=== PATIENT | female | born 1995 | race Caucasian/White ===

== ENCOUNTER 2019-12-07 05:48 | Inpatient (IN) | payer BC ==
[2019-12-07] MEDS ORDERED: Scopolamine 1.5 MG Transdermal Patch TOP ONE (06:30)
[2019-12-07] MEDS ORDERED: Dextrose 5%-Lactated Ringers 1,000 ML IV SCH (06:30)
[2019-12-07] MEDS ORDERED: Gabapentin 300 MG Cap PO ONE (06:30)
[2019-12-07] MEDS ORDERED: Celecoxib 200 MG Cap PO ONE (06:30)
[2019-12-07] MEDS ORDERED: Acetaminophen 500 MG Tab PO ONE (06:30)
[2019-12-07] MEDS ORDERED: cefOXitin 2 GM Vial ONE (06:59)
[2019-12-07] MEDS ORDERED: fentaNYL 250 MCG/5 ML SDV ONE (07:02)
[2019-12-07] MEDS ORDERED: Neostigmine Methylsulfate 1 MG/ML 5 ML Syringe ONE (07:03)
[2019-12-07] MEDS ORDERED: Ondansetron 4 MG/2 ML SDV ONE (07:03)
[2019-12-07] MEDS ORDERED: Glycopyrrolate 0.2 MG/ML 5 ML MDV ONE (07:03)
[2019-12-07] MEDS ORDERED: Succinylcholine 200 MG/10 ML MDV ONE (07:03)
[2019-12-07] MEDS ORDERED: Propofol 200 MG/20 ML SDV ONE (07:03)
[2019-12-07] MEDS ORDERED: Rocuronium 50 MG/5 ML Vial ONE (07:03)
[2019-12-07] MEDS ORDERED: Dexamethasone 4 MG/ML SDV ONE (07:03)
[2019-12-07] MEDS ORDERED: cefOXitin 2 GM in Sodium Chloride 0.9% 50 ML IV ONE (07:30)
[2019-12-07] MEDS ORDERED: Ketamine 50 MG in Sodium Chloride 0.9% 49.5 ML IV SCH (08:00)
[2019-12-07] MEDS ORDERED: Ketamine 500 MG/5 ML MDV IV SCH (08:00)
[2019-12-07] MEDS ORDERED: Magnesium Sulfate 7 GM in Sodium Chloride 0.9% 250 ML IV ONE (08:00)
[2019-12-07] MEDS ORDERED: fentaNYL 100 MCG/2 ML SDV ONE (08:12)
[2019-12-07] MEDS ORDERED: Lactated Ringers 1,000 ML ONE (09:17)
[2019-12-07] MEDS ORDERED: hydrOXYzine HCL 100 MG/2 ML SDV IM PRN (10:00)
[2019-12-07] MEDS ORDERED: Ondansetron 4 MG/2 ML SDV IVPUSH PRN (10:00)
[2019-12-07] MEDS ORDERED: Cyclobenzaprine 10 MG Tab PO PRN (10:00)
[2019-12-07] MEDS ORDERED: diphenhydrAMINE 50 MG/ML SDV IVPUSH PRN (10:00)
[2019-12-07] MEDS ORDERED: Acetaminophen 500 MG Tab PO PRN (10:00)
[2019-12-07] MEDS ORDERED: Labetalol 20 MG/4 ML Syringe IVPUSH PRN (10:00)
[2019-12-07] MEDS ORDERED: HYDROmorphone 1 MG/ML Syringe IV PRN (10:00)
[2019-12-07] MEDS ORDERED: Calcium Gluconate 10% 1 GM/10 ML SDV IVPUSH PRN (10:00)
[2019-12-07] MEDS ORDERED: Metoclopramide 10 MG/2 ML SDV IVPUSH PRN (10:00)
[2019-12-07] MEDS ORDERED: oxyCODONE 5 MG Tab PO PRN (10:00)
[2019-12-07] MEDS ORDERED: HYDROmorphone 0.5 MG/0.5 ML Syringe IVPUSH PRN (10:00)
[2019-12-07] MEDS ORDERED: Pantoprazole 40 MG Vial IVPUSH SCH (12:00)
[2019-12-07] MEDS: Dextrose 5%-Lactated Ringers 1,000 ML IV SCH ×3 (12:00→23:45)
[2019-12-07] MEDS: cefOXitin 2 GM in Sodium Chloride 0.9% 50 ML IV SCH ×3 (13:46→23:44)
[2019-12-07] MEDS: Gabapentin 250 MG/5 ML Solution ML 470 ML Bottle PO SCH ×2 (13:58→20:28)
[2019-12-07] MEDS: Acetaminophen 500 MG Tab PO SCH ×2 (13:58→21:50)
[2019-12-07] MEDS: Heparin Sodium 5,000 Units/ML Vial SUBCUT SCH (17:33)
[2019-12-07] MEDS: MVI, Adult with Vitamin K 10 ML, Thiamine 200 MG, Chromium/Copper/Mang/Selen/Zn 1 ML in... IV SCH ×4 (17:35)
[2019-12-08] MEDS ORDERED: Iopamidol 612 MG/ML 50 ML SDV PO STA (01:53)
[2019-12-08] MEDS: Acetaminophen 500 MG Tab PO SCH ×3 (05:22→22:03)
[2019-12-08] MEDS: Heparin Sodium 5,000 Units/ML Vial SUBCUT SCH ×2 (05:22→16:28)
[2019-12-08] MEDS: Dextrose 5%-Lactated Ringers 1,000 ML IV SCH (05:25)
[2019-12-08] MEDS: cefOXitin 2 GM in Sodium Chloride 0.9% 50 ML IV SCH ×2 (05:30→11:59)
[2019-12-08] MEDS ORDERED: Ondansetron 4 MG Tab.DIS PO PRN (06:46)
[2019-12-08] MEDS ORDERED: hydrOXYzine HCl 25 MG Tab PO PRN (06:47)
[2019-12-08] MEDS ORDERED: Dextrose 5%-Lactated Ringers 1,000 ML IV SCH (07:00)
[2019-12-08] MEDS: Gabapentin 250 MG/5 ML Solution ML 470 ML Bottle PO SCH ×3 (08:34→22:03)
[2019-12-08] MEDS: Celecoxib 200 MG Cap PO SCH ×2 (08:34→22:03)
[2019-12-08] MEDS ORDERED: SCOPOLAMINE PATCH CHECK TOP SCH (09:00)
--- NOTE | 2019-12-08 10:47 | CR ---
[facility] HISTORY: Postbariatric surgery FINDINGS: Patient swallowed water-soluble contrast. Upright views of the abdomen show no evidence of extravasation or obstruction. There is a surgical drain in the left upper quadrant. IMPRESSION: Status post bariatric surgery No extravasation or obstruction seen
[2019-12-08] MEDS ORDERED: Pantoprazole 40 MG Delayed-Release Granules 1 Packet PO SCH (11:30)
--- NOTE | 2019-12-08 11:41 | PN ---
DATE OF SERVICE: 12/08/2019 SUBJECTIVE: Mellisa is postop day #1. Upper GI this morning was normal. Vital signs have been stable. She has been up ambulating. Pain has been controlled with energy protocol. Oral intake 630. Urine output 3600 and SHABANA drain put out 110 mL of a light pink drainage. REVIEW OF SYSTEMS: Remainder of review of systems negative for any pertinent positives and negatives. OBJECTIVE: GENERAL: Mellisa Sanabria is a pleasant 24-year-old female. VITAL SIGNS: TPR at 0235; 97.7, 98, 18. Blood pressure 150/74. HEENT: Negative. NECK: Supple. HEART: Regular rate and rhythm. LUNGS: Clear. ABDOMEN: Dressings dry and intact. Abdominal binder is on and SHABANA drain intact as above. EXTREMITIES: Without peripheral edema. ASSESSMENT: Diagnostic laparoscopy with: 1. Laparoscopic sleeve gastrectomy. 2. Liver biopsy. 3. Repair of paraesophageal hernia. POSTOPERATIVE DIAGNOSES: 1. Morbid obesity. 2. Hepatomegaly. 3. Paraesophageal diaphragmatic hernia. Date of procedure: 12/07/2019. Surgeon: Bimal Vazquez MD. PLAN: 1. Communication order: 3 med cups per hour, 1 every 20 minutes, record at bedside. 2. May shower, dressing off. 3. Step 2 gastric bypass diet without cereal. 4. Decrease IV to 100 mL/h. 5. Atarax 25 mg p.o. q.4 hours p.r.n. pain. 6. Zofran ODT 4 mg every 4 hours p.r.n. nausea. Discontinue IV Dilaudid, discontinue IM Vistaril, and discontinue pulse oximetry. Continue use of incentive spirometer. 7. Ambulate at least 6 times in moraes, distance as tolerated. 8. We will evaluate p.r.n. or in a.m. Karen Claire PA-C /[id number]
[2019-12-08] MEDS: MVI, Adult with Vitamin K 10 ML, Thiamine 200 MG, Chromium/Copper/Mang/Selen/Zn 1 ML in... IV SCH ×4 (15:33)
--- NOTE | 2019-12-08 15:39 | OR ---
DATE OF PROCEDURE: 12/07/2019 SURGEON: Bimal Vazquez MD PREOPERATIVE DIAGNOSIS: Morbid obesity. POSTOPERATIVE DIAGNOSES: 1. Morbid obesity. 2. Marked hepatomegaly. 3. Paraesophageal diaphragmatic hernia. OPERATIVE PROCEDURE: Diagnostic laparoscopy with: 1. Laparoscopic sleeve gastrectomy (83735). 2. Neville-Cut needle liver biopsy (73941). 3. Repair of paraesophageal diaphragmatic hernia (10981). ANESTHESIA: General. FRONT OFFICE SECRETARY: Karen Claire PA-C INDICATIONS FOR PROCEDURE: A 24-year-old female presenting with longstanding morbid obesity and increasingly significant comorbidities. After preoperative evaluation and discussion, she wished to proceed with a sleeve gastrectomy. Potential risks including bleeding, infection, leaks from the staple line, problems with worsening reflux, as well as potential nutritional deficiencies, and lastly either short-term or long-term inadequate weight loss were all gone over, along with the remote possibility of cardiopulmonary, septic, or hemorrhagic complications leading to , and the patient wishes to proceed. DETAILS OF PROCEDURE: The patient was taken to the operative room and placed in a supine position. After general endotracheal anesthesia was induced, she was converted to a lithotomy position, and the abdomen prepped and draped. At 15 cm inferior and 5 cm left of the xiphoid process, transverse incision was made, and the peritoneal cavity entered under direct vision with an Optiview trocar, inflated to 15 mmHg pressure of CO2. Laparoscope was reinserted. No underlying trocar insertion site injuries were seen. Following this, 5 additional trocars were placed across the upper and mid abdomen. Bilateral transversus abdominis plane blocks were placed. The patient was noted to have marked hepatomegaly with liver being grossly fatty infiltrated, roughly 2 to 3 times than normal in size. Neville-Cut needle biopsies were obtained from left lobe of liver. Minimal bleeding from the biopsy sites was controlled with electrocautery. The liver was then retracted anteriorly. The patient was noted to have a moderate-sized paraesophageal diaphragmatic hernia. This included a prolapse of the perigastric fat and gastric fundus in a plane anterior to the course of the esophagus. Photo documentation was obtained. The hernia was then reduced and the peritoneum overlying incised and reflected downward. Once the crura were dissected out, crural repair anteriorly was accomplished with 0 Ethibond sutures reinforced with PTFE pledgets. Attention was then taken to division of the omentum away from the greater curvature of stomach. This began in the mid greater curvature. Initially, it was directed proximally across the short gastric vessels, including the highest and posterior short gastric vessels. The gastric fundus was then dissected away from the remaining attachments to the left yolanda of the diaphragm until that area was well freed up. The division of the omentum away from the greater curvature then continued to a point 2 cm proximal to the pylorus. The initial staple line across the antrum and then inferior to the incisura angularis was then marked out with electrocautery. The first 3 firings of the staple line were with non- reinforced TRICIA black loads. Care was taken to avoid overtightening of the incisura angularis. At that point, a 32-German suction tube was placed orally and then advanced across the esophagus and into the lesser curvature of the stomach. This was pulled up against the lesser curvature of the stomach where suction was applied. This acted then as a template for the remainder of the staple line, which was accomplished with a series of reinforced TRICIA black loads. At that point, the gastrectomy phase was completed, and the staple line was found to be intact. The remaining staple line was then reinforced with fibrin sealant, focusing on the area of the esophagogastric junction. The omentum was then brought up across the entire length of the staple line as well, where it easily adhered to the fibrin sealant. With the tube now off suction, the staple line was covered with some antibiotic-containing saline solution. While the duodenum was being compressed, air was injected; however with tense distention of the remaining stomach, no bleeding or air leaks were seen, and the gastric tube was then removed. At this point, the gastric specimen was retrieved through the left lateral trocar site. A Matt-Smomer drain was placed through the left lateral trocar site adjacent to the esophagogastric junction, and from there, into the splenic fossa. With no further problems noted, trocars were removed and peritoneal cavity deflated. The incision was closed with some 4-0 Vicryl skin stitch and the drain affixed with 4-0 Vicryl stitch as well. The patient was taken to the recovery room in satisfactory condition. Physician assistant drafter, Karen Claire PA-C, played an essential role in assisting in this case, helping to position the patient and retract structures as needed as well as suturing and cutting sutures when indicated. Her presence improved patient safety and decreased the operative time. Bimal Vazquez MD /[id number]
[2019-12-09] MEDS: Acetaminophen 500 MG Tab PO SCH (05:06)
[2019-12-09] MEDS: Heparin Sodium 5,000 Units/ML Vial SUBCUT SCH (05:06)
[2019-12-09] MEDS ORDERED: Cyanocobalamin (Vitamin B12) 1,000 MCG/ML SDV IM ONE (09:00)
[2019-12-09] MEDS: Gabapentin 250 MG/5 ML Solution ML 470 ML Bottle PO SCH (09:10)
[2019-12-09] MEDS: Celecoxib 200 MG Cap PO SCH (09:10)
--- NOTE | 2019-12-09 13:12 | DISCH ---
ADMISSION DIAGNOSES: 1. Morbid obesity. 2. BMI 52.9. DISCHARGE DIAGNOSES: Diagnostic laparoscopy with: 1. Laparoscopic sleeve gastrectomy. 2. Neville-Cut needle liver biopsy. 3. Repair of paraesophageal diaphragmatic hernia. POSTOPERATIVE DIAGNOSES: 1. Morbid obesity. 2. Marked hepatomegaly. 3. Paraesophageal diaphragmatic hernia. HISTORY: Mellisa is a 24-year-old female presenting with longstanding history of morbid obesity and increasing comorbidities. After preoperative evaluation and discussion of possible risks and possible complications, she wished to proceed with surgical procedure. HOSPITAL COURSE: Mellisa had her surgery on 12/07/2019. She had no postop complications. On postoperative day #1, her upper GI was normal. She was started on step 2 without cereal, gastric bypass diet. On postoperative day #2, she received dietary instruction, B12 1000 mcg IM injection, discharge instructions, and she was able to be discharged to home without any complications. PHYSICAL EXAMINATION: GENERAL: Mellisa is a pleasant 24-year-old female, alert, orientated. VITAL SIGNS: Height is 5 feet 6 inches, weight is 327 pounds 9.6 ounces, BMI is 52.9. TPR last checked on 12/08/2019 at 2220, 97.2; 82; 16; blood pressure 144/86. HEENT: Negative. NECK: Supple. HEART: Regular rate and rhythm. LUNGS: Clear. ABDOMEN: SHABANA drain will be discontinued. 4 x 4 placed over SHABANA drain. Trocar sites with sutures intact. Abdominal binder is on. EXTREMITIES: Without peripheral edema. DISPOSITION: Discharged to home. CONDITION: Stable and improving. FOLLOWUP: Appointment with Karen Claire PA-C, at [facility] on 12/17/2019 at 9:45 a.m. HOME MEDICATIONS: 1. Celebrex 200 mg p.o. b.i.d., #28. 2. Tylenol 1000 mg every 8 hours p.r.n. pain. 3. Zofran ODT 4 mg every 4 hours p.r.n. nausea. 4. All vitamins and supplements on hold until after 1st postop appointment. DIET: Step 2 gastric bypass diet without cereal until 01/06/2020. ACTIVITY: No lifting greater than 10 pounds for 2 weeks. Walk at least 6 times daily inside your home. Driving: Do not drive for 1 week. May shower. DISCHARGE INSTRUCTIONS: Notify provider if any fever, increased pain, nausea, or vomiting. Keep site clean and dry. Wear abdominal binder for 2 weeks and then as tolerated. Use incentive spirometer 10 times every hour while awake.
== END 2019-12-09 09:10 | disposition home or self-care (01) | DRG 403 ==
LOC: JP.SDSSCHI 05:48 → JP.SDS 05:48 → EDSTATUS 08:15 → JP.MS 08:45
PROVIDERS: ADMIT Surgery; ATTEND Surgery
PROC: 0DB64Z3 Excision of Stomach, Percutaneous Endoscopic Approach, Vertical (ICD-10-PCS; principal; 2019-12-07)
PROC: 0FB24ZX Excision of Left Lobe Liver, Percutaneous Endoscopic Approach, Diagnostic (ICD-10-PCS; 2019-12-07)
PROC: 0BQT4ZZ Repair Diaphragm, Percutaneous Endoscopic Approach (ICD-10-PCS; 2019-12-07)
DX: E66.01 Morbid (severe) obesity due to excess calories (principal); R16.0 Hepatomegaly, not elsewhere classified; K44.9 Diaphragmatic hernia without obstruction or gangrene; F41.9 Anxiety disorder, unspecified; Z68.43 Body mass index [BMI] 50.0-59.9, adult; Z90.49 Acquired absence of other specified parts of digestive tract; Z79.899 Other long term (current) drug therapy; Z88.0 Allergy status to penicillin; Z88.2 Allergy status to sulfonamides; Z88.5 Allergy status to narcotic agent; Z88.8 Allergy status to other drugs, medicaments and biological substances
CPT/HCPCS: 36415; 74240; 74240-26; 81025; 86850; 86900; 86901; 93005; 94762; A9270-GY; C9113; J0171; J0330; J0694; J1100; J1644; J2405; J2704; J2710; J2795; J3010; J3411; J3420; J3475; J3490; J7050; J7120; J7121; Q9967